=== PATIENT | female | born 1950 | race Caucasian/White ===

== ENCOUNTER 2017-03-01 21:40 | Emergency (ER) | payer OTHER ==
[~2017-03-01] VITALS: Ht 167.6 cm; Wt 59.0 kg
[2017-03-01] MEDS ORDERED: LIORESAL 10 MG10 MG PO (22:16)
[2017-03-01] MEDS ORDERED: VITAMINC500 PO (22:16)
[2017-03-01] MEDS ORDERED: LIPITOR10 MG PO (22:16)
[2017-03-01] MEDS ORDERED: CALCIUM 600 +1 EAC1 PO (22:20)
[2017-03-01] MEDS ORDERED: ALLERGY10 M1 PO (22:21)
[2017-03-01] MEDS ORDERED: PERIDEX15 ML PO (22:23)
[2017-03-01] MEDS ORDERED: GABAPENTIN 100100 MG PO (22:24)
[2017-03-01] MEDS ORDERED: FENOFIBRATE160 MG (22:24)
[2017-03-01] MEDS ORDERED: MIDODRINE HCL 55 M1 PO (22:26)
[2017-03-01] MEDS ORDERED: PREVACID15 MG (22:26)
[2017-03-01 22:27] LABS: URINE BILIRUBIN 1+ (Negative); URINE BLOOD 3+ (Negative); URINE COLOR RED; URINE GLUCOSE-RANDOM* NEGATIVE (Negative); URINE KETONES NEGATIVE (Negative); URINE LEUKOCYTES-REFLEX 3+ (Negative); URINE PROTEIN (DIPSTICK) 3+ (Negative); URINE SPECIFIC GRAVITY 1.015 (1.003-1.035)
[2017-03-01] MEDS ORDERED: ZOFRAN ODT4 M1 PO (22:31)
[2017-03-01 22:32] LABS: ICTOTEST (BILI CONFIRMATORY) Negative (Negative)
[2017-03-01] MEDS ORDERED: TYLENOL325 MG PO (22:33)
[2017-03-01] MEDS ORDERED: REGLAN 10 MG TA10 MG PO (22:35)
[2017-03-01] MEDS ORDERED: MELATONIN5 M1 PO (22:35)
[2017-03-01] MEDS ORDERED: ATIVAN0.5 MG IV (22:35)
[2017-03-01 22:36] LABS: CASTS None Seen /LPF (None Seen); CRYSTALS None Seen /LPF (None Seen); SQUAMOUS 0-3 Few /LPF (0-3); URINE RBC >20 Many /HPF (0-2); URINE WBC-REFLEX 6-15 Few /HPF (0-5)
[2017-03-01] MEDS ORDERED: OXYCODONE HCL 55 MG PO (22:36)
[2017-03-01] MEDS ORDERED: KEFLEX500 MG PO (22:51)
[2017-03-01 23:45] VITALS: BP 90/67
== END 2017-03-01 23:47 ==
LOC: ER
PROVIDERS: Emergency Medicine
DX: T83.018A Breakdown (mechanical) of other urinary catheter, initial encounter (principal); N39.0 Urinary tract infection, site not specified; X58.XXXA Exposure to other specified factors, initial encounter; Y93.89 Activity, other specified; Y92.89 Other specified places as the place of occurrence of the external cause; Y99.8 Other external cause status